=== PATIENT | male | born 1995 | race Caucasian/White ===

== ENCOUNTER 2022-05-08 13:28 | Inpatient (IN) | payer OTHER ==
[~2022-05-08] VITALS: Ht 175.3 cm; Wt 85.7 kg
[2022-05-08 13:55] VITALS: BP 139/96
--- NOTE | 2022-05-08 15:19 | NUR ---
PT AMBULATED TO BED 11 WITH STEADY GAIT
--- NOTE | 2022-05-08 15:20 | NUR ---
26 Y/O MALE BIB SELF C/O ALCOHOL WITHDRAWAL, PER PT HE DRANK "RIGHT BEFORE HE GOT HERE BECAUSE HE WANTED TO PREVENT HIMSELF FROM HAVING DELIRIUM". PER PT HE DRANK 750ML OF HENNESY, 325ML OF "MD" A 15% ALCOHOL, AND A BUNCH OF BEER. NO SLURRED SPEECH AND TREMORS NOTED. PT ADMITS TO HAVING AUDITORY AND VISUAL HALLUCINATIONS AT THIS TIME, STATING THAT A "DEVIL IS TELLING HIM SHIT" AND THAT "HIS FAMILY IS TALKING ABOUT GOLF", DENIES ANY SI/HI AT THIS TIME. ALLERGY: AMOXICILLIN PMH: SEZIURES, ETOH
--- NOTE | 2022-05-08 15:41 | NUR ---
DR HANSON AT BEDSIDE
[2022-05-08] MEDS ORDERED: THIAMINE 100 MG TAB PO STA (15:50)
[2022-05-08] MEDS ORDERED: DIAZEPAM PFS 10 MG/2 ML SYR IVP ONE (15:50)
[2022-05-08 16:03] LABS: BASOPHILS % (AUTO) 0.4 % (0.0-2.0); EOSINOPHILS % (AUTO) 0.1 % (0.0-4.0); HEMATOCRIT 45.8 % (36-52); HEMOGLOBIN 15.9 g/dL (12.0-18.0); LYMPHOCYTES % (AUTO) 33.8 % (20.5-51.1); MEAN CORPUSCULAR HEMOGLOBIN 33 pg (27-31); MEAN CORPUSCULAR HGB CONC 35 g/dL (33-37); MEAN CORPUSCULAR VOLUME 93.8 fL (80-94); MONOCYTES % (AUTO) 11.6 % (1.7-9.3); NEUTROPHILS # (AUTO) 4.9 K/uL (1.8-7.7); NEUTROPHILS % (AUTO) 54.1 % (42.2-75.2); PLATELET COUNT (AUTO) 176 K/uL (140-450); RED BLOOD CELL COUNT(AUTO) 4.89 MIL/uL (4.20-6.10); RED CELL DISTRIBUTION WIDTH 14.9 % (11.6-13.7)
[2022-05-08] MEDS ORDERED: LORazepam 2 MG/ML VIAL IVP ONE (16:05)
[2022-05-08 16:22] LABS: ALBUMIN 4.5 g/dL (3.4-5.0); ASPARTATE AMINOTRANSFERASE 301 U/L (15-37); CARBON DIOXIDE 24.7 mmol/L (21-32); CHLORIDE 95 mmol/L (98-107); CREATININE 0.9 mg/dL (0.6-1.3); GFR ARICAN-AMERICAN 129 mL/min (>90); GLUCOSE 120 mg/dL (74-106); SODIUM SERUM 136 mmol/L (136-145); TOTAL BILIRUBIN 0.5 mg/dL (0.0-1.0); UREA NITROGEN, BLOOD 5 mg/dL (7-18)
[2022-05-08 16:27] LABS: ACETAMINOPHEN < 0.5 ug/ml (10-30); POTASSIUM 2.7 mmol/L (3.5-5.1); SALICYLATE < 2.8 mg/dL (2.8-20.0)
[2022-05-08] MEDS ORDERED: KCL 20 MEQ/WATER INJ PREMIX 200 ML IV ONE (16:30)
[2022-05-08] MEDS ORDERED: MAG SULF 2000 MG/WATER PREMIX 50 ML IV ONE (16:30)
--- NOTE | 2022-05-08 16:55 | NUR ---
PER DR HANSON FINISH THE POTASSIUM FIRST AND THEN GIVE THE MAG
[2022-05-08] MEDS ORDERED: NACL 0.9% 1,000 ML IV ONE (17:05)
[2022-05-08 17:33] LABS: APPEARANCE,URINE CLEAR (CLEAR); BILIRUBIN,URINE NEGATIVE (NEGATIVE); BLOOD, URINE TRACE-I (NEGATIVE); COLOR,URINE YELLOW (YELLOW); LEUKOCYTE ESTERASE ,URINE NEGATIVE (NEGATIVE); NITRITE, URINE NEGATIVE (NEGATIVE); UGLUCOSE NEGATIVE (NEGATIVE)
[2022-05-08 17:38] LABS: RBC,URINE 0-5 /HPF (0-5); WBC,URINE NONE SEEN /HPF (0-5)
[2022-05-08] MEDS ORDERED: ONDANSETRON 4 MG/2 ML VIAL IVP PRN (17:45)
[2022-05-08] MEDS ORDERED: MORPHINE SULFATE 2 MG/ML SYR IVP PRN (17:45)
[2022-05-08] MEDS ORDERED: ACETAMINOPHEN 325 MG TAB PO PRN (17:45)
[2022-05-08] MEDS: NACL 0.9% 1,000 ML IV SCH (18:21)
--- NOTE | 2022-05-08 19:24 | NUR ---
Pt report given to FREIDA NEWTON. Transfer of care at this time.
--- NOTE | 2022-05-08 19:40 | NUR ---
Patient A/Ox4, resting comfortably, chest rise and fall symmetrical, no s/s of distress, no c/o pain, seizure precautions/pads on side rails.
--- NOTE | 2022-05-08 20:30 | NUR ---
Patient A/Ox4, resting comfortably, chest rise and fall symmetrical, no s/s of distress, no c/o pain, seizure precautions/pads on side rails.
--- NOTE | 2022-05-08 21:25 | NUR ---
Patient A/Ox4, resting comfortably, chest rise and fall symmetrical, no s/s of distress, no c/o pain, seizure precautions/pads on side rails.
--- NOTE | 2022-05-08 22:04 | NUR ---
Patient A/Ox4, resting comfortably, chest rise and fall symmetrical, no s/s of distress, no c/o pain, seizure precautions/pads on side rails.
--- NOTE | 2022-05-08 23:05 | NUR ---
RECEIVED PATIENT FROM ER AAOX4 ON ROOM AIR. CC: SHAKING. LOSS OF APPETITE, N/V, HEARING VOICES. DX: ALCOHOL WITHDRAWAL , HYPOKALEMIA. PATIENT IS AMBULATORY , ON SEIZURE PRECAUTION. NO COMPLAINTS OF PAIN AT THIS TIME. SKIN INTACT. MRSA SCREENING DONE. ALL SAFETY PRECAUTIONS ARE IN PLACE. CALL LIGHT WITHIN REACH.
--- NOTE | 2022-05-08 23:36 | NUR ---
Patient will be admitted to care of Telemetry nurse Laurie NEWTON. Admited to Telemetry. Will go to room 125B. Belongings list completed. Report to Telemetry nurse Laurie NEWTON. Telemetry nurse Laurie NEWTON verbalized understanding of report, no further questions. Patient safely transferred to Tele 125B, IV patent infusing medication at prescribed rate via IV pump. Patient A/Ox4, chest rise and fall symmetrical, resting comfortably in bed on monitor. All transfer forms given to floor Charge Nurse.
[2022-05-09] VITALS (7 sets, daily range): BP systolic 118–137; BP diastolic 69–83
[2022-05-09] MEDS: LORazepam 2 MG/ML VIAL IVP PRN ×4 (00:37→22:54)
[2022-05-09 01:42] LABS: BARBITURATE, URINE NEGATIVE ng/ml (NEG <=200); BENZODIAZEPINE, URINE POSITIVE ng/mL (NEG <=200); CANNABINOID, URINE NEGATIVE ng/mL (NEG <=50); COCAINE, URINE NEGATIVE ng/mL (NEG <=300); OPIATE, URINE NEGATIVE ng/mL (NEG <=2000); PHENCYCLIDINE SCREEN,URINE NEGATIVE ng/mL (NEG <=25)
[2022-05-09] MEDS: NACL 0.9% 1,000 ML IV SCH ×3 (01:44→18:06)
--- NOTE | 2022-05-09 02:59 | NUR ---
PATIENT RECEIVED ATIVAN AND IS SLEEPING. NO S/S OF DISTRESS. WILL CONTINUE TO MONITOR.
--- NOTE | 2022-05-09 04:30 | NUR ---
PATIENT AWAKE V/S TAKEN. PT ASKED FOR JUICE, SERVED WITH ICE PER REQUEST.
[2022-05-09 05:45] LABS: BASOPHILS % (AUTO) 0.6 % (0.0-2.0); EOSINOPHILS # (AUTO) 0.1 K/uL (0-0.4); EOSINOPHILS % (AUTO) 1.7 % (0.0-4.0); HEMATOCRIT 40.7 % (36-52); HEMOGLOBIN 14.2 g/dL (12.0-18.0); LYMPHOCYTES # (AUTO) 2.2 K/uL (2.0-11.5); MEAN CORPUSCULAR HEMOGLOBIN 33 pg (27-31); MEAN CORPUSCULAR HGB CONC 35 g/dL (33-37); MONOCYTES # (AUTO) 0.6 K/uL (0.8-1.0); MONOCYTES % (AUTO) 12.1 % (1.7-9.3); NEUTROPHILS # (AUTO) 2.2 K/uL (1.8-7.7); NEUTROPHILS % (AUTO) 42.6 % (42.2-75.2); PLATELET COUNT (AUTO) 165 K/uL (140-450); RED BLOOD CELL COUNT(AUTO) 4.33 MIL/uL (4.20-6.10); RED CELL DISTRIBUTION WIDTH 14.7 % (11.6-13.7); WHITE BLOOD COUNT (AUTO) 5.1 K/uL (4.8-10.8)
[2022-05-09 07:17] LABS: ALBUMIN 3.6 g/dL (3.4-5.0); ANION GAP 19.1 (8-16); CARBON DIOXIDE 23.2 mmol/L (21-32); MAGNESIUM 2.2 mg/dL (1.8-2.4); POTASSIUM 3.3 mmol/L (3.5-5.1); TOTAL BILIRUBIN 0.9 mg/dL (0.0-1.0)
--- NOTE | 2022-05-09 07:18 | NUR ---
REPORT GIVEN TO MORNING SHIFT NURSE FOR CONTINUITY OF CARE. NO SEIZURES, NO VOMITING NOTED DURING THIS SHIFT.
--- NOTE | 2022-05-09 07:30 | NUR ---
RECEIVED REPORT FROM NIGHTSHIFT NURSE. PT A/O X3. ABLE TO MAKE NEEDS KNOWN. NO SOB OR RESPIRATORY DISTRESS. ON RA. SEIZURE PRECAUTIONS IN PLACE. DENIES PAIN. MILD HAND TREMORS NOTED, DENIES VISUAL/AUDITORY HALLUCINATIONS AND STATES HE HAD SOME AUDITORY HALLUCINATIONS WHEN HE WAS IN THE ER. NEEDS ALL MET AT THIS TIME. ALL SAFETY MEASURES IN PLACE.
[2022-05-09] MEDS ORDERED: POTASSIUM CHLORIDE 10 MEQ TABER PO SCH (08:20)
--- NOTE | 2022-05-09 09:25 | NUR ---
PT REQUESTING FOR ATIVAN. PRN ATIVAN GIVEN. PT STILL WITH MILD HAND TREMORS. NO VISUAL SWEAT NOTED, NO AGITATION. IV DRESSING REINFORCED ON RAC #20. BREAKFAST AT BEDSIDE. ORAL FLUIDS PROVIDED. NEEDS ALL MET. LIGHTS CLOSED PER PT REQUESTS. NEEDS ALL MET AT THIS TIME. ALL SAFETY MEASURES IN PLACE.
--- NOTE | 2022-05-09 10:41 | NUR ---
PATIENT HAS BEEN SCREENED AND CATEGORIZED LOW NUTRITION RISK. PATIENT WILL BE SEEN WITHIN 7 DAYS OF ADMISSION. 05/09/22-05/16/[address]
--- NOTE | 2022-05-09 11:45 | NUR ---
DC PLANNING SW MET WITH PATIENT AT BEDSIDE TO COMPLETE ASSESSMENT. PATIENT REPORTS RESIDING AT HOME WITH HIS FAMILY IN A SINGLE STORY HOME, AT THE ADDRESS LISTED ON FILE. PATIENT IDENTIFIED BRIEN OROPEZA, MOM [phone] EMERGENCY CONTACT AND MDM. PATIENT DENIED AD IN PLACE AND DECLINED AD OFFERED BY SW. PATIENT REPORTS BEING INCONSISTENT WITH MEETING WITH PCP AND REPORTS LAST VISIT; 2 YRS AGO. SW SPOKE TO PT ABOUT THE IMPORTANCE OF FOLLOW UP CARE AND PROVIDED SW WITH PERMISSION TO SCHEDULE F/U APPT. PATIENT DENIES TAKING MEDICATION AND DENIED BARRIERS IN ACQUIRING MEDICATION, IF NEEDED. PATIENT REPORTS PICKING UP MEDIATION FROM [facility] [address] [facility] [place], WHEN NEEDED. PATIENT REPORTS BEING AMBULATORY AND COMPLETES ADL'S INDEPENDENTLY. 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 PATIENT DENIED MENTAL HEALTH HX. PATIENT REPORTS SUBSTANCE USE HX, PRIMARY SUBSTANCE OF CHOICE ALCOHOL. PATIENT REPORTS DRINKING THAT PROGRESSIVELY GETS WORSE THAT ULTIMATELY ENDS UP IN HIM BINGE DRINKING. PATIENT REPORTS BEING HOSPITALIZED 3 TIMES FOR ALCOHOL WITHDRAWAL IN THE LAST 10 MONTHS. 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 PATIENT REPORTS BEING SOBER FROM [phone]. PATIENT ACCEPTED SUBSTANCE USE RESOURCES OFFERED BY [facility]. PATIENT REPORTS DC PLAN IS TO RETURN HOME WHEN MEDICALLY STABLE. Addendum: 05/12/22 at 1026 by Suma Jackson SW OUTREACHED TO PATIENTS PCP OFFICE AT [phone]. SPOKE WITH CHETAN AND APPT WAS SCHEDULED FOR 05/15/22 AT 11:00 AM, AT [address] [facility] [id number]. PATIENT WAS CALLED AND PROVIDED WITH APPT DETAILS THAT INCLUDED; DATE, TIME, ADDRESS, PHONE NUMBER AND DR. PATIENT ACCEPTED
--- NOTE | 2022-05-09 12:59 | NUR ---
PT ALSEEP. CHEST RISING AND FALLING. IVF INFUSING.
--- NOTE | 2022-05-09 19:10 | NUR ---
REPORT GIVEN TO NIGHTSHIFT NURSEAMADOR FOR CONTINUITY OF CARE.
--- NOTE | 2022-05-09 19:11 | NUR ---
REPORT RECEIVED FROM MORNING SHIFT NURSE GAYLA. PATIENT IN BED RESTING BROWSING HIS PHONE. AWAKE ALERT ORIENTED X4. ON ROOM AIR. NO SOB NOTED. RESPIRATION EVEN UNLABORED. NEEDS ATTENDED TO. SAFETY MEASURES IN PLACE. CALL LIGHT WITHIN REACH.
--- NOTE | 2022-05-09 22:54 | NUR ---
ATIVAN ADMINISTERED. PATIENT SLEEPING. BREATHING NORMAL WITH SYMMETRICAL RISE AND FALL OF THE CHEST.
[2022-05-10] VITALS: BP 124/80
[2022-05-10] MEDS: NACL 0.9% 1,000 ML IV SCH ×2 (01:51→09:49)
--- NOTE | 2022-05-10 01:57 | NUR ---
CHECKED ON PATIENT. PT SLEEPING, NO S/S OF RESPIRATORY DISTRESS. WILL CONTINUE TO MONITOR PT.
[2022-05-10 04:00] VITALS: BP 132/87
--- NOTE | 2022-05-10 07:26 | NUR ---
ENDORSED PATIENT TO DAY SHIFT NURSE FOR CONTINUITY OF CARE.
--- NOTE | 2022-05-10 07:30 | NUR ---
RECEIVED PT ASLEEP AND LYING ON THE BED WITH SIDE RAILS UP AND PADDED, CALL LIGHT WITHIN REACH, PT IS ON ROOM AIR, RESPIRATION IS EVEN, VISIBLE CHEST RISE AND FALL, IV LINE NOTED ON THE RIGHT AC G. 20 WITH NS INFUSING AT 125ML/HR, INTACT, NO SIGN OF DISTRESS NOTED AND WILL CONTINUE TO MONITOR PT.
[2022-05-10 08:00] VITALS: BP 139/86
--- NOTE | 2022-05-10 09:56 | NUR ---
PT IS AWAKE NAD LYING ON THE BED, DENIES PAIN AT THIS TIME, IVF BAG WAS REPLACED WITH ANOTHER BAG, NO SIGN OF DISTRESS NOTED AND WILL CONTINUE TO MONITOR PT.
[2022-05-10 12:00] VITALS: BP 132/72
--- NOTE | 2022-05-10 14:30 | NUR ---
PT IS RESTING NOW AND IS WATCHING TV
[2022-05-10] MEDS ORDERED: LIB25 PO (15:13)
--- NOTE | 2022-05-10 16:09 | NUR ---
DISCHARGED PT TO HOME AND WILL BE PICKED UP BY HIS MOTHER, DISCHARGE AND PRESCRIPTION INSTRUCTIONS WERE GIVEN TO PT AND PT VERBALIZED UNDERSTANDING, IV LINE AND ARM BAND REMOVED AND PT IS STABLE AT THIS TIME.
--- NOTE | 2022-05-11 13:48 | NUR ---
LATE ENTRY- IV MAGNESIUM SULFATE DISCONTINUED AT 2336. IV POTASSIUM CHLORIDE DISCONTINUED AT 2336.
== END 2022-05-10 16:10 | disposition home or self-care (01) | DRG 775 ==
LOC: MED 13:28 → MTU 17:46 → MMU 22:15 → OBSVTOIN 05-09 09:06
PROVIDERS: ADMIT Hospitalist; ATTEND Hospitalist
DX: F10.129 Alcohol abuse with intoxication, unspecified (principal); E83.51 Hypocalcemia; E87.6 Hypokalemia; E83.42 Hypomagnesemia; Y90.9 Presence of alcohol in blood, level not specified; Z20.822 Contact with and (suspected) exposure to COVID-19; F10.139 Alcohol abuse with withdrawal, unspecified; Z88.1 Allergy status to other antibiotic agents
CPT/HCPCS: 36415; 80053; 80305; 81001; 82550; 82553; 83735; 84484; 85025; 87081; 93005; G0378; G0480; G0482; J2060; J3475; J3480

== ENCOUNTER 2023-06-14 23:15 | Emergency (ER) | payer OTHER ==
[~2023-06-14] VITALS: Ht 175.3 cm; Wt 81.6 kg
[~2023-06-14 23:15] MED LIST: LIB25 PO
[2023-06-14 23:22] VITALS: BP 145/100; PULSE 94; RESP 16; TEMP 98.1; O2SAT 98
[2023-06-14] MEDS ORDERED: LORazepam 2 MG/ML VIAL IVP ONE (23:30)
[2023-06-14] MEDS ORDERED: NACL 0.9% 1,000 ML IV ONE (23:30)
[2023-06-14 23:48] LABS: BASOPHILS % (AUTO) 0.4 % (0.0-2.0); HEMATOCRIT 47.1 % (36-52); HEMOGLOBIN 15.7 g/dL (12.0-18.0); LYMPHOCYTES # (AUTO) 2.6 K/uL (2.0-11.5); LYMPHOCYTES % (AUTO) 48.7 % (20.5-51.1); MEAN CORPUSCULAR HEMOGLOBIN 30 pg (27-31); MEAN CORPUSCULAR HGB CONC 33 g/dL (33-37); MEAN CORPUSCULAR VOLUME 89.1 fL (80-94); MONOCYTES # (AUTO) 0.5 K/uL (0.8-1.0); NEUTROPHILS # (AUTO) 2.2 K/uL (1.8-7.7); NEUTROPHILS % (AUTO) 40.9 % (42.2-75.2); PLATELET COUNT (AUTO) 197 K/uL (140-450); RED BLOOD CELL COUNT(AUTO) 5.29 MIL/uL (4.20-6.10); RED CELL DISTRIBUTION WIDTH 14.4 % (11.6-13.7); WHITE BLOOD COUNT (AUTO) 5.4 K/uL (4.8-10.8)
[2023-06-14 23:54] VITALS: BP 145/100; PULSE 86; RESP 12; O2SAT 98
[2023-06-15 00:09] LABS: ANION GAP 16.7 (8-16); CALCIUM 8.7 mg/dL (8.5-10.1); CARBON DIOXIDE 30.1 mmol/L (21-32); CHLORIDE 95 mmol/L (98-107); GLUCOSE 122 mg/dL (74-106); POTASSIUM 3.8 mmol/L (3.5-5.1); SODIUM SERUM 138 mmol/L (136-145); UREA NITROGEN, BLOOD 13 mg/dL (7-18)
[2023-06-15 00:10] LABS: ALKALINE PHOSPHATASE 108 U/L (50-136); ASPARTATE AMINOTRANSFERASE 80 U/L (15-37); CREATININE 0.9 mg/dL (0.6-1.3); GFR ARICAN-AMERICAN 128 mL/min (>90); GFR NON ARICAN-AMERICAN 106 mL/min (>90); TOTAL BILIRUBIN 0.4 mg/dL (0.0-1.0)
[2023-06-15 00:11] LABS: ACETAMINOPHEN < 0.5 ug/ml (10-30); ALBUMIN 4.2 g/dL (3.4-5.0); SALICYLATE < 2.8 mg/dL (2.8-20.0); TOTAL PROTEIN, SERUM 8.7 g/dL (6.4-8.2)
[2023-06-15 00:13] LABS: ALCOHOL, BLOOD 348 mg/dL (<10)
[2023-06-15 00:18] LABS: ALANINE AMINOTRANSFERASE 84 U/L (12-78)
[2023-06-15] MEDS ORDERED: ONDANSETRON 4 MG/2 ML VIAL IVP ONE (00:55)
== END 2023-06-15 03:13 | disposition home or self-care (01) ==
LOC: MED 23:15
DX: F10.129 Alcohol abuse with intoxication, unspecified (principal); I10 Essential (primary) hypertension; Z79.899 Other long term (current) drug therapy; Z88.1 Allergy status to other antibiotic agents; Y90.9 Presence of alcohol in blood, level not specified
CPT/HCPCS: 36415; 80053; 85025; 96361; 96374; 96375; 99284; G0480; G0482; J2060; J2405; J7030